=== PATIENT | female | born 1980 | race African-American/Black ===

== ENCOUNTER 2016-07-22 16:19 | Emergency (ER) | payer OTHER ==
[2016-07-22] MEDS ORDERED: NAPROXEN 250 MG TABLET PO ONE (16:36)
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
[2016-07-22 19:41] VITALS: BP 135/63
== END 2016-07-22 19:41 | disposition home or self-care (01) ==
LOC: ER 16:19
DX: M54.5 Low back pain (principal); M54.6 Pain in thoracic spine; V49.50XA Passenger injured in collision with unspecified motor vehicles in traffic accident, initial encounter; F17.200 Nicotine dependence, unspecified, uncomplicated
CPT/HCPCS: 72070; 72110; 99283

== ENCOUNTER 2017-12-02 13:45 | Emergency (ER) | payer SELFPAY ==
[2017-12-02 13:52] VITALS: BP 118/60
--- NOTE | 2017-12-02 14:25 | ER Document Report ---
HPI - HPI Pain Level: 5 Notes: Patient is a 37-year-old female no significant past medical history presents to the ED complaining of right ear "clogging" feeling of fluid 1 week. Patient states that she has not been swimming recently. She has not had any recent illness. On occasion her ear ache as well. Denies any drug allergies. Pain does not radiate. She has not been taking any medicines for her symptoms. Denies any drug allergies. Denies any headache, fever, head injury, neck pain, URI, sore throat, chest pain, palpitations, syncope, cough, shortness of breath , wheeze, dyspnea, abdominal pain, nausea/vomiting/diarrhea, urinary retention, dysuria, hematuria, or rash. - ROS Systems Reviewed and Negative: Yes All other systems reviewed and negative - REPRODUCTIVE Reproductive: DENIES: : Past Medical History - Social History Smoking Status: Never Smoker Family History: Reviewed & Not Pertinent Endocrine Medical History: Denies: Hx Diabetes Mellitus Type 1, Hx Diabetes Mellitus Type 2 Renal/ Medical History: Denies: Hx Peritoneal Dialysis - Immunizations Hx Diphtheria, Pertussis, Tetanus Vaccination: Yes Vertical Provider Document - CONSTITUTIONAL Agree With Documented VS: Yes Notes: PHYSICAL EXAMINATION: GENERAL: Well-appearing, well-nourished and in no acute distress. A&Ox4. Answers questions appropriately. Moves comfortably w/o notable distress HEAD: Atraumatic, normocephalic. EYES: Pupils equal round and reactive to light, extraocular movements intact, sclera anicteric, conjunctiva are normal. ENT: EAC clear b/l. TM's intact b/l without erythema, fluid, or perforation. Nontender bilaterally. Nares patent and without discharge. oropharynx no erythema without exudates. No tonsilar hypertrophy without erythema or exudate. No palatine shift. Uvula midline. No tongue protrusion. No drooling , hoarseness, or airway compromise. Moist mucous membranes. No sinus tenderness. NECK: Normal range of motion, supple without lymphadenopathy. No rigidity/ meningismus. LUNGS: Breath sounds clear to auscultation bilaterally and equal. No wheezes rales or rhonchi. No retractions HEART: Regular rate and rhythm without murmurs, rubs, gallops. NEUROLOGICAL: Normal speech, normal gait. Normal sensory, motor exams PSYCH: Normal mood, normal affect. SKIN: Warm, Dry, normal turgor, no rashes or lesions noted. - INFECTION CONTROL TRAVEL OUTSIDE OF THE [place] IN LAST 30 DAYS: No Course - Re-evaluation Re-evalutation: 12/02/17 14:22 Patient is an afebrile, well-hydrated, 37-year-old female who presents to the ED with otalgia, unspecified. Vitals are acceptable. PE is otherwise unremarkable. Patient has no significant tachycardia, tachypnea, or hypoxia. She is nontoxic-appearing and is tolerating p.o. without difficulties. No labs or imaging warranted at this time based on H&P. Low suspicion for any sepsis, meningitis, severe dehydration, respiratory compromise, mastoiditis, Mnire's disease, or other systemic emergent condition at this time. Patient is aware that condition can change from initial presentation and she needs to monitor symptoms closely and seek medical attention with any acute changes. Conservative measures for symptoms. Recheck with your PCM in 3-5 days. Schedule an appointment with ENT for further evaluation and management. Return to the ED with any worsening/concerning symptoms otherwise as reviewed discharge. Patient is in agreement. - Vital Signs Vital signs: Temp Pulse Resp BP Pulse Ox 99.6 F 94 18 118/60 100 12/02/17 13:51 12/02/17 13:51 12/02/17 13:51 12/02/17 13:51 12/02/17 13:51 Discharge - Discharge Clinical Impression: Otalgia, unspecified Qualifiers: Laterality: bilateral Qualified Code(s): H92.03 - Otalgia, bilateral Condition: Stable Disposition: HOME, SELF-CARE Additional Instructions: Maintain adequate fluid intake Take meds as directed tylenol/ibuprofen as needed Avoid Q-tips in the ears over the counter cold medication as needed for symptoms F/u: with your PCM in 3-5 days for a recheck Schedule an appointment with ENT for further evaluation and management Return to the ED with any fever, worsening pain, chest pain, palpitations, syncope, worsening DE, neck pain/stiffness, shortness of breath, wheezing, drooling, trouble swallowing/breathing, abdominal pain, n/v/d, rash, or worsening/concerning symptoms otherwise. Referrals: SHARLENE HAIR DO [ASSOCIATE] - Follow up as needed
== END 2017-12-02 14:38 | disposition home or self-care (01) ==
LOC: ER 13:45
DX: H92.03 Otalgia, bilateral (principal); E11.9 Type 2 diabetes mellitus without complications
CPT/HCPCS: 99282

== ENCOUNTER 2019-06-16 17:27 | Emergency (ER) | payer SELFPAY ==
[2019-06-16] MEDS ORDERED: IBUPROFEN 800 MG TABLET PO ONE (17:44)
--- NOTE | 2019-06-16 17:49 | ER Document Report ---
HPI - HPI Patient complains to provider of: body aches cough Time Seen by Provider: 06/16/19 17:41 Onset: Yesterday Onset/Duration: Sudden Quality of pain: Achy Pain Level: 2 Context: 38-year-old female presents emergency department with complaints of body aches chills cough since yesterday. 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 Reports she did not receive her flu vaccine. Denies fever vomiting diarrhea. Denies pain with void. Associated Symptoms: Body/muscle aches, Nonproductive cough Exacerbated by: Denies Relieved by: Denies Similar symptoms previously: No Recently seen / treated by doctor: No - REPRODUCTIVE Reproductive: DENIES: : Past Medical History - General Information source: Patient - Social History Smoking Status: Current Every Day Smoker Chew tobacco use (# tins/day): No Frequency of alcohol use: Occasional Drug Abuse: None Occupation: Call center Lives with: Family Family History: Reviewed & Not Pertinent Patient has suicidal ideation: No Patient has homicidal ideation: No - Medical History Medical History: Negative Endocrine Medical History: Denies: Hx Diabetes Mellitus Type 1, Hx Diabetes Mellitus Type 2 Renal/ Medical History: Denies: Hx Peritoneal Dialysis Surgical Hx: Negative - Immunizations Hx Diphtheria, Pertussis, Tetanus Vaccination: Yes Vertical Provider Document - CONSTITUTIONAL Agree With Documented VS: Yes Exam Limitations: No Limitations General Appearance: WD/WN, No Apparent Distress - Nontoxic looking - INFECTION CONTROL TRAVEL OUTSIDE OF THE [place] IN LAST 30 DAYS: No - HEENT HEENT: Atraumatic, Normal ENT Exam, Normocephalic, PERRLA. negative: Conjuctival Injection, Pharyngeal Erythema, Tympanic Membrane Red, Tympanic Membrane Bulging - NECK Neck: Normal Inspection, Supple. negative: Lymphadenopathy-Left, Lymphadenopathy-Right - RESPIRATORY Respiratory: Breath Sounds Normal, No Respiratory Distress. negative: Rales, Rhonchi - CARDIOVASCULAR Cardiovascular: Regular Rate, Regular Rhythm - GI/ABDOMEN Gastrointestinal: Abdomen Non-Tender - BACK Back: negative: CVA Tenderness-Right, CVA Tenderness-Left - MUSCULOSKELETAL/EXTREMETIES Musculoskeletal/Extremeties: MAEW, FROM - NEURO Level of Consciousness: Awake, Alert Motor/Sensory: No Motor Deficit - DERM Integumentary: Warm, Dry Course - Re-evaluation Re-evalutation: 06/16/19 17:48 38-year-old female with complaints of body aches cough since yesterday. Did not receive her flu vaccine. Denies fever vomiting diarrhea. Motrin, influenza test and chest x-ray ordered. 06/16/19 19:35 Patient positive for influenza B. We discussed Tamiflu. Patient does not have insurance but a prescription was written. She was instructed to push fluids take Motrin she was also given order of Zofran. She verbalized understanding to all instructions. Discharge - Discharge Clinical Impression: Body aches, Cough, Influenza B Condition: Stable Disposition: HOME, SELF-CARE Instructions: Acetaminophen, Antinausea Medication ([facility]), Use of Ezot-Ccv-Agldbjo Ibuprofen ([facility]), Influenza ([facility]) Additional Instructions: *You have been evaluated for body aches, cough, influenza B *Increase fluid intake as discussed *Take medication as prescribed *Monitor your temperature, take Tylenol or Motrin as indicated Good handwashing do not share food or drinks *Follow up with a primary care provider within one week for recheck *Return to ED for worsening condition, changes, needs Monitor your blood pressure. Your blood pressure was elevated today. This may be because you were anxious, in pain or because you need medication. It is important to follow up with your primary care provider for full evaluation. Prescriptions: Oseltamivir Phosphate [Tamiflu 75 mg Capsule] 75 mg PO BID #10 capsule Forms: Elevated Blood Pressure, Return to Work
--- NOTE | 2019-06-16 18:24 | RADIOLOGY REPORT (SQ) ---
EXAM DESCRIPTION: CHEST 2 VIEWS COMPLETED DATE/TIME: 06/16/2019 6:15 pm REASON FOR STUDY: cough COMPARISON: None. EXAM PARAMETERS: NUMBER OF VIEWS: two views TECHNIQUE: Digital Frontal and Lateral radiographic views of the chest acquired. RADIATION DOSE: NA LIMITATIONS: none FINDINGS: LUNGS AND PLEURA: No opacities, masses or pneumothorax. No pleural effusion. MEDIASTINUM AND HILAR STRUCTURES: No masses or contour abnormalities. HEART AND VASCULAR STRUCTURES: Heart normal size. No evidence for failure. BONES: No acute findings. HARDWARE: None in the chest. OTHER: No other significant finding. IMPRESSION: NO ACUTE RADIOGRAPHIC FINDING IN THE CHEST. TECHNICAL DOCUMENTATION: JOB ID: [id number] [employer]- All Rights Reserved Reading location - IP/workstation name: [email or web address]
[2019-06-16 19:14] LABS: A TYPE INFLUENZA AG NEGATIVE (NEGATIVE); B INFLUENZA AG POSITIVE (NEGATIVE)
[2019-06-16] MEDS ORDERED: ONDANSETRON ODT 4 MG TAB (6 TAB/ER DISP) PO PRN (19:19)
[2019-06-16 19:38] VITALS: BP 135/60
== END 2019-06-16 19:38 | disposition home or self-care (01) ==
LOC: ER 17:27
DX: J10.1 Influenza due to other identified influenza virus with other respiratory manifestations (principal); M79.10 Myalgia, unspecified site; R05 Cough; F17.200 Nicotine dependence, unspecified, uncomplicated
CPT/HCPCS: 71046; 87804; 99283